=== PATIENT | female | born 1990 | race Caucasian/White ===

== ENCOUNTER → 2017-08-12 | Outpatient (CLI) | payer OTHER | END | disposition home or self-care (01) | LOC: C.LABSPEC 11:15 | PROVIDERS: ATTEND Obstetrics & Gynecology | DX: Z34.01 Encounter for supervision of normal first pregnancy, first trimester (principal) ==

== ENCOUNTER → 2017-08-19 | Outpatient (CLI) | payer OTHER | END | disposition home or self-care (01) | LOC: C.LABSPEC 18:36 | PROVIDERS: ATTEND Obstetrics & Gynecology | DX: Z34.01 Encounter for supervision of normal first pregnancy, first trimester (principal) ==

== ENCOUNTER → 2017-09-01 | Outpatient (CLI) | payer OTHER ==
[2017-09-01 17:26] LABS: BASO % 0.1 %; BASO ABS # 0.01 K/uL (0-0.2); EOS % 1.4 %; EOS ABS # 0.15 K/uL (0-0.5); HEMATOCRIT 41.3 % (37-47); HEMOGLOBIN 14.2 g/dL (12.0-16.0); IG# 0.02 K/uL (0.00-0.02); LYMPH % 21.6 %; LYMPH ABS # 2.29 K/uL (1.2-3.4); MEAN CELL VOLUME 84.3 fL (80-100); MEAN CORPUSCULAR HGB CONC 34.4 g/dl (32-36); MEAN PLATELET VOLUME 9.7 fL (7.4-10.4); MONO % 4.7 %; NEUT ABS # 7.61 K/uL (1.4-6.5); PLATELET COUNT 163 K/uL (130-400); RED CELL DISTRIBUTION WIDTH CV 13.8 % (11.5-14.5); RED CELL DISTRIBUTION WIDTH SD 41.9 fL (36.4-46.3); WHITE BLOOD COUNT 10.58 K/uL (4.8-10.8)
== END | disposition home or self-care (01) ==
LOC: C.LAB1850 16:26
PROVIDERS: ATTEND Obstetrics & Gynecology
DX: Z34.01 Encounter for supervision of normal first pregnancy, first trimester (principal)

== ENCOUNTER → 2017-09-09 | Outpatient (CLI) | payer OTHER | END | disposition home or self-care (01) | LOC: C.LAB1850 15:57 | PROVIDERS: ATTEND Physician Assistant | DX: E03.9 Hypothyroidism, unspecified (principal) ==

== ENCOUNTER 2022-03-17 03:46 | Inpatient (IN) ==
[2022-03-17] MEDS ORDERED: OXYTOCIN 30 UNITS/500 ML BAG IV PRN ×2 (04:36→05:21)
[2022-03-17] MEDS ORDERED: LACTATED RINGER'S 1,000 ML IV PRN (04:36)
[2022-03-17] MEDS ORDERED: LIDOCAINE 1% LOCAL 20 ML VIAL INFIL PRN (04:36)
--- NOTE | 2022-03-17 04:36 | Delivery Summary ---
Vaginal Delivery Summary Date of Service March 17, 2022 Vaginal Delivery Summary Spontaneous vaginal delivery the patient arrived to labor and delivery she was post to be induced this week for IUGR however she was fully dilated on arrival at that time was not able to give antibiotics for her group B strep positive due to lack of time membranes were ruptured on exam and she pushed a baby in occiput anterior out. Head was delivered mouth suctioned gentle traction no nuchal cord fluid was clear no excessive force live vigorous female infant cord clamped and cut cord gases obtained cord blood obtained placenta removed with gentle traction IV Pitocin started uterine tone improved local anesthetic injected into the vagina small second-degree tear repaired with 3-0 Vicryl sponge and instrument counts correct estimated blood loss 250 mL
[2022-03-17 04:55] LABS: Base Excess Cord Venous Blood -3.1 mEq/L (-7.7-1.9); Cord Venous Blood HCO3 21 mmol/L (18.4-26.8); Cord Venous Blood PCO2 35 mmHg (30.4-57.2); Cord Venous Blood PO2 29 mmHg (14.1-43.3); Cord Venous Blood pH 7.39 (7.20-7.44)
[2022-03-17] MEDS ORDERED: OXYTOCIN 10 UNITS/ML VIAL ONE (05:10)
[2022-03-17 05:19] LABS: Hematocrit (blood only) 36.8 % (34.1-44.9); Hemoglobin 12.4 g/dl (12.0-16.0); Mean Corpuscular Hemoglobin 29.5 pg (25.0-34.0); Mean Corpuscular Hgb Conc 33.7 g/dL (32.0-36.0); Mean Corpuscular Volume 87.6 fL (80.0-100.0); Mean Platelet Volume 10.5 fL (9.4-12.3); Platelet Count 145 K/uL (130-400); RDW Coefficient of Variation 13.2 % (11.5-14.5); RDW Standard Deviation 42.3 fL (36.4-46.3); White Blood Count 18.13 K/ul (4.8-10.8)
[2022-03-17] MEDS ORDERED: oxyCODONE/ACETAMINOPHEN 5mg/325mg TAB PO PRN (05:21)
[2022-03-17] MEDS ORDERED: BENZOCAINE 20% AER SPR 82.5 GM CAN EXT PRN (05:21)
[2022-03-17] MEDS ORDERED: ACETAMINOPHEN 325 MG TAB PO PRN (05:21)
[2022-03-17] MEDS ORDERED: DIPHTHERIA/TETANUS/PERTUSSIS 0.5 ML SYR/VIAL IM ONE (05:21)
[2022-03-17] MEDS ORDERED: HYDROCORTISONE ACETATE 25 MG SUPP PR PRN (05:21)
[2022-03-17] MEDS ORDERED: LEVOTHYROXINE SODIUM 150 MCG TABLET PO SCH (06:30)
[2022-03-17] MEDS: IBUPROFEN 600 MG TAB PO PRN ×3 (06:37→20:40)
[2022-03-17] MEDS: LEVOTHYROXINE SODIUM 150 MCG TABLET PO SCH (06:40)
[2022-03-17] MEDS: DOCUSATE SODIUM 100 MG CAP PO SCH ×2 (08:41→20:40)
[2022-03-17] MEDS: PRENATAL VITAMIN 1 TAB PO SCH (08:41)
[2022-03-18] MEDS: LEVOTHYROXINE SODIUM 150 MCG TABLET PO SCH (06:38)
--- NOTE | 2022-03-18 07:03 | Obstetrical Progress Note ---
Date of Service March 18, 2022 Assessment & Plan (1) Vaginal delivery: Rapid delivery and Group B Strep+ without adequate prophylactic abx in labor, so anticipate will need to stay for another day of observation, thus plan d/c of mom tomorrow AM. Recovering well from maternal standpoint and would be OK to go home if nursery were to release infant today. Subjective Ambulation: ambulating normally Voiding: no voiding problems Passing Gas:: Yes Diet Tolerance:: regular diet Lochia:: Small Feeding Type:: breast feeding Physical Exam Patient sitting up at bedside during visit Constitutional WD/WN, vitals as above Eyes PERRL, conjunctivae normal, anicteric sclerae Neck normal visual inspection Respiratory normal respiratory effort and able to speak in complete sentences; no respiratory distress and no labored breathing Cardiovascular Rate/Rhythm: regular rate and regular rhythm Extremities: no edema Chest (Breasts) Chest: normal inspection of chest Gastrointestinal (Abdomen) Inspection/Auscultation: abdomen normal to inspection Soft, postgravid Psychiatric A+Ox3, euthymic affect Results & Data ([facility]) Vital Signs (Past 12 Hours) Vital Signs Temp Pulse Resp BP Pulse Ox O2 Del Method 03/17/22 23:25 97.9 F 64 16 109/69 97 Room Air 03/17/22 19:56 98.1 F 62 16 106/68 98 Room Air
[2022-03-18] MEDS: PRENATAL VITAMIN 1 TAB PO SCH (08:01)
[2022-03-18] MEDS: DOCUSATE SODIUM 100 MG CAP PO SCH (08:02)
[2022-03-18] MEDS: IBUPROFEN 600 MG TAB PO PRN (10:16)
[2022-03-18] MEDS ORDERED: bisacodyL 5 MG TABEC PO SCH (20:00)
[2022-03-19] MEDS ORDERED: bisacodyL 10 MG SUPP PR PRN (05:21)
[2022-03-22] MEDS ORDERED: LEVOTHYROXINE SODIUM 150 MCG TABLET PO SCH (06:30)
== END 2022-03-18 13:55 | disposition home or self-care (01) | DRG 807 ==
LOC: OPB 03:46 → 4S1 04:02 → 4E2 07:24

== ENCOUNTER 2025-03-13 07:43 | Inpatient (IN) ==
[2025-03-13] MEDS ORDERED: OXYTOCIN 30 UNITS/NSS 30 UNITS/500 ML BAG IV PRN ×2 (07:55→18:09)
[2025-03-13] MEDS ORDERED: CALCIUM CARBONATE 500 MG CHEWABLE TAB PO PRN (07:55)
[2025-03-13] MEDS ORDERED: ACETAMINOPHEN 500 MG TAB PO PRN (07:55)
[2025-03-13] MEDS ORDERED: LIDOCAINE 1% LOCAL 20 ML VIAL INFIL PRN (07:55)
--- NOTE | 2025-03-13 08:41 | History & Physical Report ---
Date of Service March 13, 2025 Assessment & Plan (1) Encounter for induction of labor: Plan admit, pitocin induction. arom when appropriate, epidural on demand, anticipate . Admission and Anticipated Discharge Date Admission Date: March 13, 2025 History of Present Illness Chief Complaint: iol Primary Care Provider: Dianna Cook MD Patient is a 34yowf with iup at 39 4/7 who presents for iol for hx of rapid delivery. Notes no ctx/lof/vb. +fm. and Delivery Plans Daily Smoking * 1/4 pack per day Hypothyroid * Check TFTs Q4wks Rh Negative * Rhogam at 28 weeks Given 12/22/24 ML Hx of IUGR *baby ASA @ 12wk GBS + treat in labor OB Labs: Blood Type O Negative 08/10/24 Antibody Screen NEGATIVE 12/22/24 Hgb 11.6 g/dl (12.0-16.0) L 12/22/24 Hct 34.2 % (37.0-47.0) L 12/22/24 MCV 83.7 fL (80.0-100.0) 08/10/24 Plt Count 159 K/uL (130-400) 08/10/24 Rubella IgG Antibody Immune (Immune) 08/10/24 RPR Nonreactive (Nonreactive) 08/18/21 Treponema pallidum Ab Negative (Negative) 12/22/24 Hep Bs Antigen Negative (Negative) 08/10/24 Hep Bs Antigen NON-REACTIVE (NON-REACTIVE) 08/18/21 Hepatitis C Antibody Negative (Negative) 08/10/24 Hepatitis C Ab (EIA) NON-REACTIVE (NON-REACTIVE) 08/18/21 HIV 1&2 Ab/P24 Ag 4thGn Negative (Negative) 08/10/24 HIV (1&2) Ag & Ab Conf NON-REACTIVE (NON-REACTIVE) 08/18/21 Glucose 1 Hr 50 gm 131 mg/dl (70-130) H 12/22/24 OB Optional Labs: Chlamydia trachomatis RNA Not Detected (NotDetected) 08/10/24 Neisseria gonorrhoeae RNA Not Detected (NotDetected) 08/10/24 Thyroid Stimulating Hormone (TSH) 1.511 uIu/ml (0.300-4.500) 02/06/25 Labs Reviewed: Declines cf/sma--mln Declines cfdna--mln Declines msafp--mln gbs positive Allergies Allergy/AdvReac Type Severity Reaction Status Date / Time meperidine [From Demerol] Allergy Unknown Verified 03/08/25 08:39 Home Medications Medication Instructions Recorded Confirmed Type levothyroxine 150 mcg tablet 150 mcg PO .COMPLEX 90 days #102 03/07/25 03/13/25 Rx tabs aspirin 81 mg capsule 81 mg PO DAILY 03/13/25 03/13/25 History lactobacillus combination no.4 3 3,000 mmu cells PO DAILY 03/13/25 03/13/25 History billion cell capsule (Probiotic) Patient History Medical History (Updated 03/13/25 @ 08:44 by Hope Morataya MD, FACOG) Health care maintenance Need for rhogam due to Rh negative mother Selvin's disease Hypothyroidism Hypothyroid in , antepartum Newly recognized heart murmur Tachycardia Palpitations Surgical History S/P adenoidectomy [place] teeth extracted History of cholecystectomy Hx of tonsillectomy Family History Mother Alcohol abuse Cervical cancer Lung disease Lung cancer Father Alcohol abuse Grandmother (Paternal) Bone cancer Grandmother (Maternal) Lung disease Grandfather (Maternal) Prostate cancer Grandfather (Paternal) Myocardial infarction Heart disease Denies family history of Ovarian cancer Breast cancer Colorectal cancer Social History Smoking Status: Current every day smoker Tobacco Type: Cigarettes Age Started Using Tobacco: 18; packs per day: 0.25; Cigarettes Per Day: 5; Second Hand Exposure: No; Do You Dip or Chew Tobacco: No; Tobacco Cessation Education Requested by Patient: No Hx Alcohol Use: No Hx Substance Use: No Preferred Language: Serbian Communication Ability: Effective Visual Impairment: No Limitations Hearing Ability: Normal Exhaust Worker Required: No Beliefs That Will Affect Care: None marital status: Single marital status details: yazmin Conrad (31) [phone] Current Living Situation: Spouse Current Living Situation Comment: lives with fob, daughters, dog current occupational status: employed current occupation: WIRELESS SALES REPRESENTATIVE at [employer] How many Children do You have: 2 Other Information That Helps Us Care for You: No Feels Safe at Home: Yes Childhood Exposure to Second-Hand Smoke: Yes during the past year weight has: decreased > 10 lbs Dental Care, Regularly: Yes Physical Activity Frequency: 3-4 Times per Week Seatbelt Use: always Sunscreen Use: Yes Assistive Devices: None OB History Past Pregnancies Del. Date GA wks Lbr Lgth wt Sex Type del Anes Place Del Prov ? Comment 03/29/18 38 7-4 F Epidural [facility] Dr. Campuzano No GBS+ 04/16/21 Aborted-Spontaneous clinton mical 03/17/22 38 6lb 4.6oz F Non e [facility] Dr. Brewster N IUGR [employer]ERTY MANAGER History noncontributory Physical Exam Constitutional: WD/WN, vitals as above Gastrointestinal (Abdomen): soft, nt, nd , gravid Psychiatric: A+Ox3, euthymic affect Genitourinary: cx--3/80/-2/mid/soft toco--neli efm--130s with mod variabiltiy, accels to 150s, no decels Results & Data Vital Signs (Past 12 Hours) Vital Signs Temp Pulse Resp BP 03/13/25 08:06 36.8 C 18 03/13/25 07:51 89 114/74 Coding Level of Care Code None Diagnoses Encounter for induction of labor Z34.90
[2025-03-13 08:42] LABS: Hematocrit (blood only) 35.1 % (37.0-47.0); Hemoglobin 12.2 g/dl (12.0-16.0); Mean Corpuscular Hemoglobin 29.8 pg (25.0-34.0); Mean Corpuscular Volume 85.6 fL (80.0-100.0); Platelet Count 106 K/uL (130-400); RDW Standard Deviation 43.9 fL (36.4-46.3); Red Blood Count 4.10 M/uL (4.20-5.40); White Blood Count 8.15 K/ul (4.8-10.8)
[2025-03-13] MEDS: LACTATED RINGER'S 1,000 ML IV PRN (09:01)
[2025-03-13] MEDS: PENICILLIN GK 6 MU in DEXTROSE 5% 250 ML IV STA (09:05)
[2025-03-13] MEDS: OXYTOCIN 30 UNITS/NSS 30 UNITS/500 ML BAG IV PRN (09:29)
[2025-03-13] MEDS: PENICILLIN GK 3 MU in DEXTROSE 5% 100 ML IV PRN (13:07)
[2025-03-13] MEDS ORDERED: ROPIVACAINE 0.5% PF 5 MG/ML 20 ML VIAL EPI PRN (13:51)
[2025-03-13] MEDS ORDERED: ONDANSETRON INJ 2 MG/ML 2 ML VIAL IV PRN (13:51)
[2025-03-13] MEDS ORDERED: NALBUPHINE HCL INJ 10 MG/ML AMP IV PRN (13:51)
[2025-03-13] MEDS ORDERED: NALOXONE HCL 1 MG in SODIUM CHLORIDE 0.9% 1,000 ML IV PRN (13:51)
[2025-03-13] MEDS ORDERED: BUPIVACAINE 0.25% PF 30 ML VIAL EPI PRN (13:51)
[2025-03-13] MEDS ORDERED: fentANYL 2 MCG/ML BUPIVacaine 0.125%-NSS 100ML BAG EPI PRN (13:51)
[2025-03-13] MEDS ORDERED: SODIUM CHLORIDE 0.9% PF INJ 10 ML VIAL EPI PRN (13:51)
[2025-03-13] MEDS ORDERED: NALOXONE HCL 0.4 MG/1 ML VIAL/CARP IV PRN (13:51)
[2025-03-13] MEDS ORDERED: LIDOCAINE 2% MPF LOCAL 5 ML VIAL EPI PRN (13:51)
--- NOTE | 2025-03-13 13:51 | Anesthesiology Consultation ---
Date of Service March 13, 2025 Assessment & Plan ASA ASA2 Proposed Anesthesia Anesthesia Type: Labor Epidural Risk / Benefits Reviewed With: PT / POA / Parent / Guardian, Accepts Plan and Informed Consent Obtained History Height/Weight Height: 5 ft 8 in Weight: 89.358 kg Allergies Allergy/AdvReac Type Severity Reaction Status Date / Time meperidine [From Demerol] Allergy Unknown Verified 03/13/25 11:17 Medications Home Medications Medication Instructions Recorded Confirmed Last Taken levothyroxine 150 mcg tablet 150 mcg PO .COMPLEX 90 days #102 03/07/25 03/13/25 03/12/25 tabs aspirin 81 mg capsule 81 mg PO DAILY 03/13/25 03/13/25 03/12/25 lactobacillus combination no.4 3 3,000 mmu cells PO DAILY 03/13/25 03/13/25 03/12/25 billion cell capsule (Probiotic) Active Medications Generic Name Dose Route Start Last Admin Trade Name Freq PRN Reason Stop Dose Admin Lactated Ringer's 1,000 mls @ 125 mls/hr 03/13/25 07:55 03/13/25 13:50 Lr IV 03/15/25 07:54 125 mls/hr .Q8H PRN Administration L&D Protocol Protocol Penicillin G Potassium 3 mu/ 106 mls @ 100 mls/hr 03/13/25 12:00 03/13/25 13:07 Dextrose IV 03/23/25 11:59 100 mls/hr Q4H PRN Administration GBS(+) Until Delivery Oxytocin 30 units in 500 mls @ 14 mls/hr 03/13/25 08:40 03/13/25 12:30 Pitocin 30 Units/Nss IV 03/15/25 08:39 0.84 units/hr .Q24H PRN 14 mls/hr Labor Induction/Augmentation Titration Protocol 0.84 UNITS/HR Past Medical History Medical History Health care maintenance Need for rhogam due to Rh negative mother Selvin's disease Hypothyroidism Hypothyroid in , antepartum Newly recognized heart murmur Tachycardia Palpitations Exercise / Class Metabolic Activity II 4-5 Yardwork/Stairs/Walk up hill Past Family History Family History Mother Alcohol abuse Cervical cancer Lung disease Lung cancer Father Alcohol abuse Grandmother (Paternal) Bone cancer Grandmother (Maternal) Lung disease Grandfather (Maternal) Prostate cancer Grandfather (Paternal) Myocardial infarction Heart disease Denies family history of Ovarian cancer Breast cancer Colorectal cancer Past Surgical History Surgical History S/P adenoidectomy [place] teeth extracted History of cholecystectomy Hx of tonsillectomy Past Anesthesia History No Hx of Anesthesia Complications and No Family Hx of Anesthesia Complications History of PONV No Hx of PONV and No Hx of Motion Sickness Social History Smoking Status: Current every day smoker tobacco type: cigarettes Smoking cigarettes per day: 5 Do You Dip or Chew Tobacco: No Hx Alcohol Use: No Alcohol type: beer and wine Hx Substance Use: No Review of Systems denies fever/cough/ colds/ chest pain/ SOB/ KORTNEY denies KORTNEY Physical Exam Vital Signs Last Vital Signs Temp 36.8 C 03/13/25 11:40 Pulse 59 L 03/13/25 12:32 Resp 18 03/13/25 11:40 BP 106/68 03/13/25 12:32 ENMT Mouth: no TMJ abnormality and no dentition abnormality Thyromental Distance: > or= 3.5 Finger Breadths Mallampati Class: II Neck neck extension not limited Respiratory normal respiratory effort; no respiratory distress Auscultation: lungs clear to auscultation bilaterally Cardiovascular Rate/Rhythm: regular rate and regular rhythm Neurologic moves all extremities Psychiatric Orientation: alert and oriented x 3 Testing Laboratory Results 03/13/25 08:22
[2025-03-13] MEDS: LIDOCAINE 2%/EPINEPHRINE 1:200,000 20 ML PF ONE (14:14)
[2025-03-13] MEDS: BUPIVACAINE 0.25% PF 30 ML VIAL ONE (14:14)
[2025-03-13] MEDS: fentANYL 2 MCG/ML BUPIVacaine 0.125%-NSS 100ML BAG ONE (14:16)
[2025-03-13] MEDS: BUPIVACAINE 0.25% PF 30 ML VIAL EPI STA (14:21)
[2025-03-13] MEDS: LIDOCAINE 2%/EPINEPHRINE 1:200,000 20 ML PF EPI STA (14:22)
[2025-03-13] MEDS: SODIUM CHLORIDE 0.9% PF INJ 10 ML VIAL EPI STA (14:22)
[2025-03-13] MEDS: SODIUM CHLORIDE 0.9% PF INJ 10 ML VIAL ONE (14:23)
--- NOTE | 2025-03-13 15:42 | Labor Progress Brief Note ---
Date of Service March 13, 2025 Subjective comfortable with epidural Assessment & Plan (1) Encounter for induction of labor: Plan continue current management. fetus category one. anticipate . Admission and Anticipated Discharge Date Admission Date: March 13, 2025 Physical Exam Physical Exam: us-cephalic cx--5/80/-2 arom--copious clear toco--q2-3, pit at 4 efm--120s with mod variability, accels to 150s, decel when maternal pressure 70/50, resolved with resolution Results & Data Vital Signs (Past 12 Hours) Vital Signs Temp Pulse Resp BP Pulse Ox 03/13/25 15:34 76 100 03/13/25 15:32 67 98/51 L 03/13/25 15:29 100 03/13/25 15:29 62 03/13/25 15:29 62 98/57 L 03/13/25 15:28 81 90 03/13/25 15:24 60 100 03/13/25 15:19 60 99 03/13/25 15:17 61 105/64 03/13/25 15:15 68 98/61 L 03/13/25 15:14 99 03/13/25 15:14 70 03/13/25 15:14 72 91 03/13/25 15:09 75 96 03/13/25 15:08 104 H 90 03/13/25 15:04 81 96 03/13/25 15:01 61 100/63 03/13/25 14:59 61 100 03/13/25 14:54 62 99 03/13/25 14:49 98 H 99 03/13/25 14:45 66 107/66 03/13/25 14:44 65 100 03/13/25 14:40 80 96/59 L 03/13/25 14:39 72 99 03/13/25 14:34 73 83/46 L 99 03/13/25 14:31 66 71/39 L 03/13/25 14:30 72 76/48 L 03/13/25 14:29 72 98 03/13/25 14:24 84 99 03/13/25 14:23 69 102/60 03/13/25 14:21 76 101/60 03/13/25 14:19 64 102/59 L 100 03/13/25 14:17 65 106/61 03/13/25 14:15 66 101/64 03/13/25 14:14 62 100 03/13/25 14:13 61 111/73 03/13/25 14:11 67 110/73 03/13/25 14:10 61 109/73 03/13/25 14:09 61 100 03/13/25 14:04 70 100 03/13/25 14:00 78 91 03/13/25 13:59 66 99 03/13/25 12:32 59 L 106/68 03/13/25 11:40 36.8 C 65 18 103/62 03/13/25 10:41 59 L 109/66 03/13/25 09:31 66 110/73 03/13/25 08:06 36.8 C 18 03/13/25 07:51 89 114/74 Coding Level of Care Code None Diagnoses Encounter for induction of labor Z34.90
--- NOTE | 2025-03-13 16:22 | Communication Note ---
Date of Service: March 13, 2025 After breaking water and copious amount of clear fluid, the baby started having very deep variables with contractions to 20s, pit stopped, put in knee chest and then iupc placed for amnioinfusion. cx was 5cm at arom and now 7cm and -1. Now in left lateral with iupc and fse. fht in 150s wtih mod variability, had a few more variables that were improved in 80s and now appears variables have resolved. Hopefully will move quickly as this is her third baby. Anesthesia was up and aware of situation. Will cotinue to monitor closely.
[2025-03-13] MEDS ORDERED: HYDROCORTISONE ACETATE 25 MG SUPP PR PRN (18:09)
[2025-03-13] MEDS ORDERED: BENZOCAINE 20% SPRY 85 APPLN/85 GM CAN EXT PRN (18:09)
[2025-03-13] MEDS ORDERED: DIPHTHER/TETAN/PERTUS Vaccine (Tdap, Adol/Adult) 0.5mL IM ONE (18:09)
--- NOTE | 2025-03-13 18:13 | Delivery Summary ---
Vaginal Delivery Summary Date of Service March 13, 2025 Vaginal Delivery Summary Pre-operative Diagnosis: at 39 weeks hx of rapid labor Post-operative Diagnosis: same Procedure: pitocin pcn for gbs prophylaxis epidural arom fse/iupc/amnioinfusion QBL: 162cc Anesthesia: epidural Procedure: The patient presented to labor and delivery for iol. Got pitocin , epidural and then arom. After arom, deep variables that responded eventually to amnioinfusion. The pit had been d/c. The patient progressed to c/c/0. The patient pushed for two contractions to deliver a viable female infant in loq position. A loose nuchal cord was easily reduced and the rest of the infant was then delivered without difficulty. The baby was vigorous. The nose and mouth were bulb suctioned and the was placed in the maternal abdomen for drying and attention. Cord was clamped and cut at one minute of life. Cord blood and segment obtained. Placenta delivered spontaneous, intact with a three vessel cord. Cervix/sulci/rectum/perineum were intact. Hemostasis obtained with dilute pitocin and fundal massage. Apgars were 8/8. Mother and baby doing well at the end of the delivery. [facility] Vaginal Delivery Charge Delivery Type Details: [facility]
--- NOTE | 2025-03-13 18:54 | Anesthesia Procedure Note ---
Date of Service March 13, 2025 Anesthesia Post Epidural Note Vital Signs Vital Signs: Temp Pulse Resp BP Pulse Ox 36.4 C L 58 L 18 104/56 L 99 03/13/25 18:10 03/13/25 18:51 03/13/25 18:25 03/13/25 18:51 03/13/25 18:14 Notes Mental Status: alert / awake / arousable and participated in evaluation Nausea / Vomiting: adequately controlled Pain: adequately controlled Airway Patency, RR, SpO2: stable & adequate BP & HR: stable & adequate Hydration State: stable & adequate Neuraxial Anesthesia: was administered and sensory block resolved Anesthetic Complications: no major complications apparent and Pt Satisfied with anesthetic care Epidural: Removed without complications and With tip intact
[2025-03-13] MEDS: diphenhydrAMINE 50 MG/ML VIAL IV PRN (20:51)
[2025-03-13] MEDS: DOCUSATE SODIUM 100 MG CAP PO SCH (20:51)
[2025-03-14] MEDS: IBUPROFEN 600 MG TAB PO PRN (02:10)
--- NOTE | 2025-03-14 06:09 | Obstetrical Progress Note ---
Date of Service March 14, 2025 Assessment & Plan (1) care following vaginal delivery: Plan 34 yo post- day 1 s/p Feels well today. Vital signs stable Continue post- care Encourage ambulation and Pain controlled with ibuprofen Hgb stable We will plan for late discharge today at 24 hour dewey, pt is to follow up with Dr. Morataya at 6 weeks for visit. Admission and Anticipated Discharge Date Admission Date: March 13, 2025 Supervising Physician Co-Signing Physician Notes Resident Physician Supervision Note: I interviewed and examined the patient. Discussed with Dr. Mandel and agree with findings and plan as documented in the note. Any exceptions or clarifications are listed here: Doing well. plts today 106-->100. no s/s of pet so likely gestational TCP. Asymptomatic. Patient desires late d/c today. Instructions reviewed. Documented By: Hope Morataya MD, FACOG Subjective 34 yo post- day 1 s/p Ambulation: ambulating normally Voiding: no voiding problems Passing Gas:: Yes Passing Stool:: No Diet Tolerance:: regular diet Lochia:: Moderate Feeding Type:: breast feeding Current Pain Level: 3/10 Resting comfortably this AM in NAD. Denies CAMPBELL, CP, SOB, N/V/D, LE pain/swelling. Review of Systems Review of Systems: All systems reviewed & are unremarkable except as noted in HPI & below Physical Exam Physical Exam: General: patient resting comfortably, NAD, non-toxic in appearance, AA&O x 4, answers questions appropriately. Skin: warm, dry, intact HEENT: NC/AT, anicteric sclera, conjunctiva without injection, moist mucus membranes. Heart: +S1/S2, regular, no m/r/g Lungs: equal air entry bilaterally, no rales/rhonchi/wheezes Abd: +BS, soft, NT/ND, uterine fundus firm 1 FB below umbilicus Ext: warm, no clubbing/cyanosis or edema, Riley's neg. Neuro: nonfocal, patient AA&O x 4, speech intact, no facial droop, moving all extremities on command. Results & Data Vital Signs (Past 12 Hours) Vital Signs Temp Pulse Pulse Resp BP BP Pulse Ox 03/14/25 03:44 36.4 C L 59 L 17 94/59 L 98 03/13/25 23:45 36.7 C 59 L 16 96/59 L 98 03/13/25 20:50 36.6 C 64 19 107/65 98 03/13/25 20:10 36.8 C 18 03/13/25 20:06 61 99/57 L 03/13/25 19:51 59 L 104/55 L 03/13/25 19:40 16 03/13/25 19:36 60 110/60 03/13/25 19:21 61 98/60 L 03/13/25 19:10 18 03/13/25 19:06 64 100/55 L 03/13/25 18:55 18 03/13/25 18:51 58 L 104/56 L 03/13/25 18:36 61 105/59 L 03/13/25 18:25 18 03/13/25 18:21 57 L 106/63 03/13/25 18:14 66 99 03/13/25 18:10 36.4 C L 18 03/13/25 18:09 72 100 O2 Del Method 03/14/25 03:44 Room Air 03/13/25 23:45 Room Air 03/13/25 20:50 Room Air 03/13/25 20:10 03/13/25 20:06 03/13/25 19:51 03/13/25 19:40 03/13/25 19:36 03/13/25 19:21 03/13/25 19:10 03/13/25 19:06 03/13/25 18:55 03/13/25 18:51 03/13/25 18:36 03/13/25 18:25 03/13/25 18:21 03/13/25 18:14 03/13/25 18:10 03/13/25 18:09 Laboratory Results OB Labs: Blood Type O Negative 08/10/24 Antibody Screen NEGATIVE 12/22/24 Hgb 11.6 g/dl (12.0-16.0) L 12/22/24 Hct 34.2 % (37.0-47.0) L 12/22/24 MCV 83.7 fL (80.0-100.0) 08/10/24 Plt Count 159 K/uL (130-400) 08/10/24 Rubella IgG Antibody Immune (Immune) 04/10/25 RPR Nonreactive (Nonreactive) 08/18/21 Treponema pallidum Ab Negative (Negative) 12/22/24 Hep Bs Antigen Negative (Negative) 08/10/24 Hep Bs Antigen NON-REACTIVE (NON-REACTIVE) 08/18/21 Hepatitis C Antibody Negative (Negative) 08/10/24 Hepatitis C Ab (EIA) NON-REACTIVE (NON-REACTIVE) 08/18/21 HIV 1&2 Ab/P24 Ag 4thGn Negative (Negative) 08/10/24 HIV (1&2) Ag & Ab Conf NON-REACTIVE (NON-REACTIVE) 08/18/21 Glucose 1 Hr 50 gm 131 mg/dl (70-130) H 12/22/24 OB Optional Labs: Chlamydia trachomatis RNA Not Detected (NotDetected) 08/10/24 Neisseria gonorrhoeae RNA Not Detected (NotDetected) 08/10/24 Thyroid Stimulating Hormone (TSH) 1.511 uIu/ml (0.300-4.500) 02/06/25 Resident Activity Tracking Resident Involvement: Resident Care Provided Care Provided: OB Delivery
[2025-03-14] MEDS: LEVOTHYROXINE SODIUM 150 MCG TABLET PO SCH (06:10)
[2025-03-14 06:58] LABS: Hematocrit (blood only) 33.6 % (37.0-47.0); Hemoglobin 11.2 g/dL (12.0-16.0); Mean Corpuscular Hemoglobin 29.6 pg (25.0-34.0); Mean Corpuscular Volume 88.7 fL (80.0-100.0); Platelet Count 100 K/uL (130-400); RDW Standard Deviation 46.2 fL (36.4-46.3); Red Blood Count 3.79 M/uL (4.20-5.40); White Blood Count 8.57 K/ul (4.8-10.8)
[2025-03-14] MEDS: PRENATAL VITAMIN 1 TAB PO SCH (09:04)
[2025-03-14 10:18] VITALS: RESP 18
[2025-03-14 17:32] VITALS: O2SAT 96
[2025-03-14 17:33] VITALS: BP 106/70; TEMP 98.1
[2025-03-14 17:43] VITALS: PULSE 59
[2025-03-14] MEDS: ACETAMINOPHEN 325 MG TAB PO PRN (18:29)
== END 2025-03-14 19:20 | disposition home or self-care (01) | DRG 807 ==
LOC: 4S1 07:43 → 4E2 20:37